=== PATIENT | male | born 1980 | race Hispanic/Latino ===

== ENCOUNTER 2020-05-15 05:33 | Emergency (ER) | payer SELFPAY ==
[2020-05-15] MEDS ORDERED: LIDOCAINE 1% MPF 5 ML VIAL ONE ×2 (06:04→06:05)
[2020-05-15] MEDS ORDERED: HYDROCODONE/APAP 7.5/325 MG TAB ONE (06:32)
--- NOTE | 2020-05-15 06:33 | EDPHYS ---
Physician Documentation [facility] Name: Tian Mckinley Jr Age: 39 yrs Sex: Male : 1980 Arrival Date: 05/15/2020 Time: 05:36 Bed 13 Private MD: ED Physician Cedric Tai HPI: 05/15 06:12 This 39 yrs old Male presents to ER via Ambulatory with complaints of Abscess. pkl 06:12 mass left axilla. Onset: The symptoms/episode began/occurred 1 week(s) ago. Patient pkl said lump in left axilla getting larger over a week. Historical: - Allergies: 05:49 No Known Allergies; bb - Home Meds: 05:49 None [Active]; bb - PMHx: 05:49 Asthma; bb - PSHx: 05:49 None; bb - Immunization history:: Adult Immunizations up to date. - Social history:: Smoking status: Patient denies any tobacco usage or history of. Patient/guardian denies using alcohol, street drugs. ROS: 06:12 Eyes: Negative for injury, pain, redness, and discharge, ENT: Negative for injury, pkl pain, and discharge, Neck: Negative for injury, pain, and swelling, Cardiovascular: Negative for chest pain, palpitations, and edema, Respiratory: Negative for shortness of breath, cough, wheezing, and pleuritic chest pain, Abdomen/GI: Negative for abdominal pain, nausea, vomiting, diarrhea, and constipation, Back: Negative for injury and pain, : Negative for injury, bleeding, discharge, and swelling, Skin: Negative for injury, rash, and discoloration, Neuro: Negative for headache, weakness, numbness, tingling, and seizure. 06:12 MS/extremity: Positive for Mass in left axilla. Exam: 06:12 Head/Face: Normocephalic, atraumatic. Eyes: Pupils equal round and reactive to light, pkl extra-ocular motions intact. Lids and lashes normal. Conjunctiva and sclera are non-icteric and not injected. Cornea within normal limits. Periorbital areas with no swelling, redness, or edema. ENT: Nares patent. No nasal discharge, no septal abnormalities noted. Tympanic membranes are normal and external auditory canals are clear. Oropharynx with no redness, swelling, or masses, exudates, or evidence of obstruction, uvula midline. Mucous membranes moist. Neck: Trachea midline, no thyromegaly or masses palpated, and no cervical lymphadenopathy. Supple, full range of motion without nuchal rigidity, or vertebral point tenderness. No Meningismus. Chest/axilla: Normal chest wall appearance and motion. Nontender with no deformity. No lesions are appreciated. Cardiovascular: Regular rate and rhythm with a normal S1 and S2. No gallops, murmurs, or rubs. Normal PMI, no JVD. No pulse deficits. Respiratory: Lungs have equal breath sounds bilaterally, clear to auscultation and percussion. No rales, rhonchi or wheezes noted. No increased work of breathing, no retractions or nasal flaring. Abdomen/GI: Soft, non-tender, with normal bowel sounds. No distension or tympany. No guarding or rebound. No evidence of tenderness throughout. Back: No spinal tenderness. No costovertebral tenderness. Full range of motion. Skin: Warm, dry with normal turgor. Normal color with no rashes, no lesions, and no evidence of cellulitis. Neuro: Awake and alert, GCS 15, oriented to person, place, time, and situation. Cranial nerves II-XII grossly intact. Motor strength 5/5 in all extremities. Sensory grossly intact. Cerebellar exam normal. Normal gait. 06:12 Musculoskeletal/extremity: Extremities: grossly normal except: noted in the left axilla: 5 cm by 4 cm mass in left axilla. Vital Signs: 05:47 BP 138 / 82; Pulse 98; Resp 18 S; Temp 99.4(O); Pulse Ox 99% on R/A; Weight 127.01 kg bb (R); Height 5 ft. 11 in. (180.34 cm) (R); Pain 8/10; 06:15 BP 127 / 67; Pulse 79; Resp 16; Pulse Ox 100% on R/A; jb4 05:47 Body Mass Index 39.05 (127.01 kg, 180.34 cm) bb Procedures: 06:12 I \T\ D: Incision and drainage was performed for an abscess of the left axilla Prepped pkl with Betadine, Anesthetized with 8 ml's 1% Lidocaine. Incised with #11 blade. Drained small amount bloody fluid. Packed with iodoform gauze, Dressing: sterile 4x4 gauze, the patient tolerated the procedure well. MDM: 05:43 Patient medically screened. pkl 06:12 Data reviewed: vital signs, nurses notes. ED course: Discussed finding at [facility]. No abscess noted. 5 cm by 4 cnn mass. ED course: Discussed finding at I and D with patient. No abscess noted. 5 by 4 cm mass in left axilla noted. Advised to follow up with Dr. Jagdish Batres in 2 to 3 days for further evaluation. Patient understood instruction. 05/15 06:14 Order name: Wound Culture jb4 05/15 06:14 Order name: Dressing - Wound; Complete Time: 06:15 jb4 05/15 06:14 Order name: Gloves, Sterile; Complete Time: 06:15 jb4 05/15 06:14 Order name: I\T\D Setup; Complete Time: 06:15 jb4 05/15 06:14 Order name: Scalpel; Complete Time: 06:15 jb4 Administered Medications: 06:05 Drug: Lidocaine (1 %) 10 mg {Note: Administered by ER provider..} Volume: 20 ml; Route: jb4 Infiltration; 06:20 Drug: [place] (7.5 mg-325 mg) 1 tabs {Note: Rass score 0.} Route: PO; 4 06:41 Follow up: Response: No adverse reaction; Pain is decreased; RASS: Alert and Calm (0) jb4 Disposition: 05/15/20 06:32 Discharged to Home. Impression: Mass left axilla. - Condition is Stable. - Prescriptions for Ultram 50 mg Oral Tablet - take 1 tablet by ORAL route every 8 hours As needed; 15 tablet. Bactrim DS 800- 160 mg Oral Tablet - take 1 tablet by ORAL route every 12 hours for 10 days; 20 tablet. - Medication Reconciliation Form, Thank You Letter, Antibiotic Education, Prescription Opioid Use form. - Follow up: Jagdish Batres MD; When: 2 - 3 days; Reason: Re-evaluation by your physician. - Problem is new. - Symptoms have improved. Signatures: Dispatcher [employer] EDMS Cedric Tai MD MD pkl Casi Nunez RN RN Sage Castaneda RN RN jb4 Corrections: (The following items were deleted from the chart) 06:12 06:11 This 39 yrs old Male presents to ER via Ambulatory with complaints of pkl Abscess. pkl 06:42 06:32 05/15/2020 06:32 Discharged to Home. Impression: Mass left axilla. Condition is jb4 Stable. Forms are Medication Reconciliation Form, Thank You Letter, Antibiotic Education, Prescription Opioid Use. Follow up: Jagdish Batres; When: 2 - 3 days; Reason: Re-evaluation by your physician. Problem is new. Symptoms have improved. pkl
--- NOTE | 2020-05-15 06:33 | ER ---
Nurse's Notes [facility] Name: Tian Mckinley Jr Age: 39 yrs Sex: Male : 1980 Arrival Date: 05/15/2020 Time: 05:36 Bed 13 Private MD: Diagnosis: Mass left axilla Presentation: 05/15 05:47 Chief complaint: Patient states: he has a "ball" under his left armpit x 2 days. bb Coronavirus screen: At this time, the client does not indicate any symptoms associated with coronavirus-19. Ebola Screen: No symptoms or risks identified at this time. Initial Sepsis Screen: Does the patient meet any 2 criteria? No. Patient's initial sepsis screen is negative. Does the patient have a suspected source of infection? No. Patient's initial sepsis screen is negative. Risk Assessment: Do you want to hurt yourself or someone else? Patient reports no desire to harm self or others. Onset of symptoms was May 12, 2020. 05:47 Method Of Arrival: Ambulatory bb 05:47 Acuity: TONI 4 bb Historical: - Allergies: 05:49 No Known Allergies; bb - Home Meds: 05:49 None [Active]; bb - PMHx: 05:49 Asthma; bb - PSHx: 05:49 None; bb - Immunization history:: Adult Immunizations up to date. - Social history:: Smoking status: Patient denies any tobacco usage or history of. Patient/guardian denies using alcohol, street drugs. Screenin:40 Abuse screen: Denies threats or abuse. Nutritional screening: No deficits noted. jb4 Tuberculosis screening: No symptoms or risk factors identified. Fall Risk None identified. Assessment: 05:40 General: Appears in no apparent distress. uncomfortable, Behavior is calm, cooperative, jb4 appropriate for age. Pain: Complains of pain in left axilla Pain does not radiate. Pain currently is 8 out of 10 on a pain scale. Quality of pain is described as throbbing. Neuro: Level of Consciousness is awake, alert, obeys commands, Oriented to person, place, time, situation. Cardiovascular: Patient's skin is warm and dry. Respiratory: Airway is patent Respiratory effort is even, unlabored, Respiratory pattern is regular, symmetrical. GI: No signs and/or symptoms were reported involving the gastrointestinal system. : No signs and/or symptoms were reported regarding the genitourinary system. EENT: No signs and/or symptoms were reported regarding the EENT system. Derm: Skin is intact, Skin is pink, warm \\T\\ dry. Abscess located on left axilla is half dollar sized, has no drainage, is hot to touch, is red, is raised. Musculoskeletal: Circulation, motion, and sensation intact. Range of motion: intact in all extremities. 06:12 Reassessment: Patient appears in no apparent distress at this time. Patient and/or jb4 family updated on plan of care and expected duration. Pain level reassessed. Patient is alert, oriented x 3, equal unlabored respirations, skin warm/dry/pink. Incision cite bandaged with 4x4. Vital Signs: 05:47 BP 138 / 82; Pulse 98; Resp 18 S; Temp 99.4(O); Pulse Ox 99% on R/A; Weight 127.01 kg bb (R); Height 5 ft. 11 in. (180.34 cm) (R); Pain 8/10; 06:15 BP 127 / 67; Pulse 79; Resp 16; Pulse Ox 100% on R/A; jb4 05:47 Body Mass Index 39.05 (127.01 kg, 180.34 cm) bb ED Course: 05:36 Patient arrived in ED. cl3 05:40 Patient has correct armband on for positive identification. Placed in gown. Bed in low jb4 position. Call light in reach. Side rails up X 1. Pulse ox on. NIBP on. 05:43 Cedric Tai MD is Attending Physician. pkl 05:48 Triage completed. bb 05:49 Arm band placed on Patient placed in an exam room, on a stretcher, on pulse oximetry. bb 06:05 Assist provider with I \\T\\ D: of an abscess on left axilla Set up I\\T\\D tray. Performed by mayra 4 Cedric Tai MD Culture sent to lab. Wound packed. iodoform gauze, Dressing with 4X4s, tape Patient tolerated well. 06:11 Sage Ling RN is Primary Nurse. jb4 06:31 Jagdish Batres MD is Referral Physician. pkl 06:41 Patient did not have IV access during this emergency room visit. jb4 Administered Medications: 06:05 Drug: Lidocaine (1 %) 10 mg {Note: Administered by ER provider..} Volume: 20 ml; Route: jb4 Infiltration; 06:20 Drug: [place] (7.5 mg-325 mg) 1 tabs {Note: Rass score 0.} Route: PO; jb4 06:41 Follow up: Response: No adverse reaction; Pain is decreased; RASS: Alert and Calm (0) jb4 Outcome: 06:32 Discharge ordered by . renuka 06:41 Discharged to home ambulatory. jb4 06:41 Condition: stable 06:41 Discharge instructions given to patient, Instructed on discharge instructions, follow up and referral plans. medication usage, Demonstrated understanding of instructions, follow-up care, medications, Prescriptions given X 2. 06:42 Patient left the ED. jb4 Signatures: Cedric Tai MD MD pkCasi Lloyd, RN RN Sage Castaneda RN RN jb4 Adam Mathews cl3 Corrections: (The following items were deleted from the chart) 06:25 05:40 Derm: Skin is intact, Skin is pink, warm \\T\\ dry. jb4 jb4
[2020-05-15 06:47] VITALS: TEMP 99.4
[2020-05-15 06:49] VITALS: BP 127/67; O2SAT 100
== END 2020-05-15 06:42 | disposition home or self-care (01) ==
LOC: ER 05:33
PROC: 0J9F0ZZ Drainage of Left Upper Arm Subcutaneous Tissue and Fascia, Open Approach (ICD-10-PCS; principal; 2020-05-15)
DX: L02.412 Cutaneous abscess of left axilla (principal)
CPT/HCPCS: 87070; 87205; 99284

== ENCOUNTER 2020-05-17 17:40 | Emergency (ER) | payer SELFPAY ==
--- NOTE | 2020-05-17 19:36 | ER ---
Nurse's Notes [facility] Name: Tian Mckinley Jr Age: 39 yrs Sex: Male : 1980 Arrival Date: 05/17/2020 Time: 17:43 Bed 27 Private MD: Diagnosis: Wound Check;Left Axilla Abscess Presentation: 05/17 18:28 Chief complaint: Patient states: was seen here on for abscess to left axilla, iw today his shirt got caught on something and he thinks the packing came out, want to have it checked. Coronavirus screen: At this time, the client does not indicate any symptoms associated with coronavirus-19. Ebola Screen: Patient negative for fever greater than or equal to 101.5 degrees Fahrenheit, and additional compatible Ebola Virus Disease symptoms Patient denies exposure to infectious person. Patient denies travel to an Ebola-affected area in the 21 days before illness onset. No symptoms or risks identified at this time. Initial Sepsis Screen: Does the patient meet any 2 criteria? No. Patient's initial sepsis screen is negative. Does the patient have a suspected source of infection? Yes:. Risk Assessment: Do you want to hurt yourself or someone else? Patient reports no desire to harm self or others. Onset of symptoms was May 17, 2020. 18:28 Method Of Arrival: Ambulatory iw 18:28 Acuity: TONI 4 iw Triage Assessment: 19:30 General: Appears in no apparent distress. Behavior is calm, cooperative. iw Historical: - Allergies: 18:30 No Known Allergies; iw - Home Meds: 18:30 None [Active]; iw - PMHx: 18:30 Asthma; iw - PSHx: 18:30 None; iw - Immunization history:: Adult Immunizations up to date. - Social history:: Smoking status: . Screenin:30 Abuse screen: Denies threats or abuse. Denies injuries from another. Nutritional iw screening: No deficits noted. Tuberculosis screening: No symptoms or risk factors identified. Fall Risk None identified. Assessment: 18:50 General: Appears in no apparent distress. Pain: Complains of pain in left axilla. iw Neuro: Level of Consciousness is awake, alert, obeys commands, Oriented to person, place, time, situation, Moves all extremities. Full function. Cardiovascular: Patient's skin is warm and dry. Respiratory: Respiratory effort is even, unlabored, Respiratory pattern is regular, symmetrical. Derm: Abscess located on left axilla is half dollar sized. Musculoskeletal: Range of motion: intact in all extremities. Vital Signs: 18:29 BP 121 / 64; Pulse 79; Resp 16; Temp 98.3; Pulse Ox 96% on R/A; Weight 113.4 kg; Height iw 5 ft. 11 in. (180.34 cm); 18:29 Body Mass Index 34.87 (113.40 kg, 180.34 cm) iw ED Course: 17:43 Patient arrived in ED. ag5 18:29 Triage completed. iw 18:30 Arm band placed on. iw 18:50 Patient has correct armband on for positive identification. iw 19:00 Ambrosio Martinez MD is Attending Physician. [facility] 19:30 No provider procedures requiring assistance completed. Patient did not have IV access iw during this emergency room visit. 19:34 Gareth Mcnulty MD is Referral Physician. [facility] 19:38 Julieta Daniels RN is Primary Nurse. iw Administered Medications: No medications were administered Outcome: 19:35 Discharge ordered by . [facility] 19:37 Discharged to home ambulatory, with family. iw 19:37 Condition: good 19:37 Discharge instructions given to patient, family, Instructed on discharge instructions, follow up and referral plans. Demonstrated understanding of instructions, follow-up care. 19:38 Patient left the ED. iw Signatures: Julieta Daniels, RN RN Cuba Gooden 5 Ambrosio Martinez MD MD [facility]
--- NOTE | 2020-05-17 19:36 | EDPHYS ---
Physician Documentation [facility] Name: Tian Mckinley Jr Age: 39 yrs Sex: Male : 1980 Arrival Date: 05/17/2020 Time: 17:43 Bed 27 Private MD: ED Physician Ambrosio Martinez HPI: 05/17 19:24 This 39 yrs old Male presents to ER via Ambulatory with complaints of Abscess mh7 Recheck. 19:24 Patient presents to ED for recheck of: abscess. The affected area is on the left mh7 axilla. Previous treatment: The patient was initially treated 2 day(s) ago, the care was rendered at [facility], Treatment type: The patient's original treatment included an I\T\D, Outpatient prescription(s): The patient was given prescription(s) for Bactrim, Ultram. Progress: The patient reports excellent improvement in the affected area. There has been resolution, improvement, or non-development of any drainage, fever, pain, redness or swelling. Historical: - Allergies: 18:30 No Known Allergies; iw - Home Meds: 18:30 None [Active]; iw - PMHx: 18:30 Asthma; iw - PSHx: 18:30 None; iw - Immunization history:: Adult Immunizations up to date. - Social history:: Smoking status: . ROS: 19:24 Constitutional: Negative for fever, chills, and weight loss, Eyes: Negative for injury, mh7 pain, redness, and discharge, ENT: Negative for injury, pain, and discharge, Neck: Negative for injury, pain, and swelling, Cardiovascular: Negative for chest pain, palpitations, and edema, Respiratory: Negative for shortness of breath, cough, wheezing, and pleuritic chest pain, Abdomen/GI: Negative for abdominal pain, nausea, vomiting, diarrhea, and constipation, Back: Negative for injury and pain, : Negative for injury, bleeding, discharge, and swelling, Neuro: Negative for headache, weakness, numbness, tingling, and seizure, Psych: Negative for depression, anxiety, suicide ideation, homicidal ideation, and hallucinations, Allergy/Immunology: Negative for hives, rash, and allergies, Endocrine: Negative for neck swelling, polydipsia, polyuria, polyphagia, and marked weight changes, Hematologic/Lymphatic: Negative for swollen nodes, abnormal bleeding, and unusual bruising. Exam: 19:24 Constitutional: This is a well developed, well nourished patient who is awake, alert, 7 and in no acute distress. Head/Face: Normocephalic, atraumatic. 19:24 MS/ Extremity: Pulses equal, no cyanosis. Neurovascular intact. Full, normal range of motion. Neuro: Awake and alert, GCS 15, oriented to person, place, time, and situation. Cranial nerves II-XII grossly intact. Motor strength 5/5 in all extremities. Sensory grossly intact. Cerebellar exam normal. Normal gait. Psych: Awake, alert, with orientation to person, place and time. Behavior, mood, and affect are within normal limits. 19:24 Chest/axilla: Inspection: Left axilla incision clean, dry, intact, no erythema. Mild swelling and serosanguinous discharge., Palpation: is normal, Axilla: Left axilla incision clean, dry, intact, no erythema. Mild swelling and serosanguinous discharge., Lymph nodes: lymphadenopathy is not appreciated. 19:24 Skin: Wound recheck: Abscess: the wound has improved, decreased discharge, decreased erythema, decreased pain, decreased surrounding cellulitis, decreased swelling, the packing is not in place. Vital Signs: 18:29 BP 121 / 64; Pulse 79; Resp 16; Temp 98.3; Pulse Ox 96% on R/A; Weight 113.4 kg; Height iw 5 ft. 11 in. (180.34 cm); 18:29 Body Mass Index 34.87 (113.40 kg, 180.34 cm) Procedures: 19:24 I \T\ D:. Performed Packing placed to prior left axillary incision after Betadine prep to [facility] skin. 1/2 inch iodoform packing placed. patient tolerated well.. MDM: 19:24 Patient medically screened. [facility] 19:24 Differential diagnosis: cellulitis, Abscess, Wound check. Data reviewed: vital signs, [facility] nurses notes, old medical records. Data interpreted: Pulse oximetry: on room air is 96 %. Interpretation: normal. Counseling: I had a detailed discussion with the patient and/or guardian regarding: the historical points, exam findings, and any diagnostic results supporting the discharge/admit diagnosis, the need for outpatient follow up, a general surgeon, to return to the emergency department if symptoms worsen or persist or if there are any questions or concerns that arise at home. Response to treatment: the patient's symptoms have markedly improved after treatment. Administered Medications: No medications were administered Disposition: 05/17/20 19:35 Discharged to Home. Impression: Wound Check, Left Axilla Abscess. - Condition is Stable. - Discharge Instructions: Wound Check, Skin Abscess, [id number]. - Medication Reconciliation Form, Thank You Letter, Antibiotic Education, Prescription Opioid Use form. - Follow up: Gareth Mcnulty MD; When: 48 Hours; Reason: Wound Recheck, Worsening of condition, Recheck today's complaints. Follow up: Emergency Department; When: 48 Hours; Reason: Wound Recheck, Worsening of condition. - Problem is an ongoing problem. - Symptoms have improved. Signatures: Julieta Daniels, RN RN iw Ambrosio Martinez MD MD mh7 Corrections: (The following items were deleted from the chart) 19:38 19:35 05/17/2020 19:35 Discharged to Home. Impression: Wound Check; Left Axilla iw Abscess. Condition is Stable. Forms are Medication Reconciliation Form, Thank You Letter, Antibiotic Education, Prescription Opioid Use. Follow up: Dr. Gareth Mcnulty; When: 48 Hours; Reason: Wound Recheck, Worsening of condition, Recheck today's complaints. Follow up: Emergency Department; When: 48 Hours; Reason: Wound Recheck, Worsening of condition. Problem is an ongoing problem. Symptoms have improved. mh7
[2020-05-17 19:50] VITALS: BP 121/64; TEMP 98.3; O2SAT 96
== END 2020-05-17 19:38 | disposition home or self-care (01) ==
LOC: ER 17:40
DX: Z48.01 Encounter for change or removal of surgical wound dressing (principal)
CPT/HCPCS: 99281

== ENCOUNTER 2020-05-19 11:34 | Emergency (ER) | payer SELFPAY ==
--- NOTE | 2020-05-19 12:40 | ER ---
Nurse's Notes [facility] Name: Tian Mckinley Jr Age: 39 yrs Sex: Male : 1980 Arrival Date: 05/19/2020 Time: 11:36 Bed 7 Private MD: Diagnosis: Cutaneous abscess of left axilla Presentation: 05/19 11:37 Chief complaint: Patient states: came here on for an I\T\D to under the left arm sv and was packed. Pt is unable to pack it and family is unable to do it as well. States that he is having more drainage from it. Pt also came here on Tuesday because the packing came out with movement. Coronavirus screen: Client denies travel out of the [place] in the last 14 days. At this time, the client does not indicate any symptoms associated with coronavirus-19. Ebola Screen: No symptoms or risks identified at this time. Risk Assessment: Do you want to hurt yourself or someone else? Patient reports no desire to harm self or others. Onset of symptoms was May 15, 2020. 11:37 Method Of Arrival: Ambulatory sv 11:37 Acuity: TONI 4 sv 11:39 Initial Sepsis Screen: Does the patient meet any 2 criteria? HR > 90 bpm. No. Patient's sv initial sepsis screen is negative. Does the patient have a suspected source of infection? No. Patient's initial sepsis screen is negative. Historical: - Allergies: 11:39 No Known Allergies; sv - PMHx: 11:37 Asthma; sv - PSHx: 11:37 None; sv - Immunization history:: Adult Immunizations up to date. - Social history:: Smoking status: . - Family history:: not pertinent. Screenin:00 Abuse screen: Denies threats or abuse. Nutritional screening: No deficits noted. em Tuberculosis screening: No symptoms or risk factors identified. Fall Risk None identified. Assessment: 12:00 General: Appears in no apparent distress. comfortable, Behavior is calm, cooperative, em appropriate for age. Pain: Complains of pain in left axilla. Neuro: Level of Consciousness is awake, alert, obeys commands, Oriented to person, place, time, situation, Appropriate for age. Cardiovascular: Capillary refill < 3 seconds Patient's skin is warm and dry. Respiratory: Airway is patent Respiratory effort is even, unlabored, Respiratory pattern is regular, symmetrical. Derm: Skin is intact, is healthy with good turgor, Skin is pink, warm \T\ dry. Wound noted left axilla Wound is I\T\D few days ago, packing came out early, was told to pack it again, pt unable to repack wound. Musculoskeletal: Capillary refill < 3 seconds, Range of motion: intact in all extremities. Vital Signs: 11:39 BP 142 / 95; Pulse 92; Resp 18; Temp 97.8; Pulse Ox 99% ; sv ED Course: 11:36 Patient arrived in ED. sv 11:37 Arm band placed on. sv 11:39 Triage completed. 12:00 Elder Cabral, RN is Primary Nurse. em 12:00 Patient has correct armband on for positive identification. Bed in low position. Call em light in reach. Adult w/ patient. 12:13 Connor Ferrara MD is Attending Physician. [facility] 12:39 Gareth Mcnulty MD is Referral Physician. [facility] 12:49 No provider procedures requiring assistance completed. Patient did not have IV access em during this emergency room visit. Administered Medications: 12:42 Drug: Doxycycline 200 mg Route: PO; em 12:48 Follow up: Response: Medication administered at discharge. em Outcome: 12:40 Discharge ordered by . [facility] 12:49 Discharged to home ambulatory, with family. em 12:49 Condition: good 12:49 Discharge instructions given to patient, family, Instructed on discharge instructions, follow up and referral plans. medication usage, Demonstrated understanding of instructions, follow-up care, medications, wound care, Prescriptions given X 1. 12:50 Patient left the ED. em Signatures: Britni Lakhani, RN JOANNA Connor Ferrara MD MD cha Munoz, Edgar, RN RN em Corrections: (The following items were deleted from the chart) 11:42 11:39 Resp 18bpm; Pulse Ox 99%; Temp 97.8F; sv sv
--- NOTE | 2020-05-19 12:41 | EDPHYS ---
Physician Documentation [facility] Name: Tian Mckinley Jr Age: 39 yrs Sex: Male : 1980 Arrival Date: 05/19/2020 Time: 11:36 Bed 7 Private MD: ED Physician Connor Ferrara HPI: 05/19 12:35 This 39 yrs old Male presents to ER via Ambulatory with complaints of Abscess azul Recheck. 12:35 Patient presents to ED for recheck of: abscess. The affected area is on the left azul axilla. Previous treatment: the care was rendered at [facility]. Progress: The patient reports excellent improvement in the affected area. There has been resolution, improvement, or non-development of any drainage, fever, pain, redness or swelling. The patient has not experienced similar symptoms in the past. Historical: - Allergies: 11:39 No Known Allergies; sv - PMHx: 11:37 Asthma; sv - PSHx: 11:37 None; sv - Immunization history:: Adult Immunizations up to date. - Social history:: Smoking status: . - Family history:: not pertinent. ROS: 12:35 Constitutional: Negative for fever, chills, and weight loss, Eyes: Negative for injury, azul pain, redness, and discharge, ENT: Negative for injury, pain, and discharge, Neck: Negative for injury, pain, and swelling, Cardiovascular: Negative for chest pain, palpitations, and edema, Respiratory: Negative for shortness of breath, cough, wheezing, and pleuritic chest pain, Abdomen/GI: Negative for abdominal pain, nausea, vomiting, diarrhea, and constipation, Back: Negative for injury and pain, : Negative for injury, bleeding, discharge, and swelling, MS/Extremity: Negative for injury and deformity, Neuro: Negative for headache, weakness, numbness, tingling, and seizure, Psych: Negative for depression, anxiety, suicide ideation, homicidal ideation, and hallucinations, Allergy/Immunology: Negative for hives, rash, and allergies, Endocrine: Negative for neck swelling, polydipsia, polyuria, polyphagia, and marked weight changes, Hematologic/Lymphatic: Negative for swollen nodes, abnormal bleeding, and unusual bruising. 12:35 Skin: Positive for erythema, swelling. Exam: 12:35 Constitutional: This is a well developed, well nourished patient who is awake, alert, azul and in no acute distress. Head/Face: Normocephalic, atraumatic. Eyes: Pupils equal round and reactive to light, extra-ocular motions intact. Lids and lashes normal. Conjunctiva and sclera are non-icteric and not injected. Cornea within normal limits. Periorbital areas with no swelling, redness, or edema. ENT: Nares patent. No nasal discharge, no septal abnormalities noted. Tympanic membranes are normal and external auditory canals are clear. Oropharynx with no redness, swelling, or masses, exudates, or evidence of obstruction, uvula midline. Mucous membranes moist. Neck: Trachea midline, no thyromegaly or masses palpated, and no cervical lymphadenopathy. Supple, full range of motion without nuchal rigidity, or vertebral point tenderness. No Meningismus. Chest/axilla: Normal chest wall appearance and motion. Nontender with no deformity. No lesions are appreciated. Cardiovascular: Regular rate and rhythm with a normal S1 and S2. No gallops, murmurs, or rubs. Normal PMI, no JVD. No pulse deficits. Respiratory: Lungs have equal breath sounds bilaterally, clear to auscultation and percussion. No rales, rhonchi or wheezes noted. No increased work of breathing, no retractions or nasal flaring. Abdomen/GI: Soft, non-tender, with normal bowel sounds. No distension or tympany. No guarding or rebound. No evidence of tenderness throughout. Back: No spinal tenderness. No costovertebral tenderness. Full range of motion. Male : Normal genitalia with no discharge or lesions. MS/ Extremity: Pulses equal, no cyanosis. Neurovascular intact. Full, normal range of motion. Neuro: Awake and alert, GCS 15, oriented to person, place, time, and situation. Cranial nerves II-XII grossly intact. Motor strength 5/5 in all extremities. Sensory grossly intact. Cerebellar exam normal. Normal gait. Psych: Awake, alert, with orientation to person, place and time. Behavior, mood, and affect are within normal limits. 12:35 Skin: Appearance: Color: normal in color, Temperature: normal temperature, Moisture: normal moisture, petechiae, not noted, ecchymosis, not noted, flushing, not noted, abscess, of the left axilla, with drainage, cellulitis, is not appreciated, induration, is not appreciated, injury, is not appreciated, no rash present. Vital Signs: 11:39 BP 142 / 95; Pulse 92; Resp 18; Temp 97.8; Pulse Ox 99% ; sv MDM: 12:13 [facility]. [facility] 12:38 Differential diagnosis: cellulitis. Data reviewed: vital signs, nurses notes. Data azul interpreted: disease intervention specialist: not applicable for this patient encounter. rate is 92 beats/min, rhythm is regular, Pulse oximetry: is not applicable for this patient encounter. Counseling: I had a detailed discussion with the patient and/or guardian regarding: the historical points, exam findings, and any diagnostic results supporting the discharge/admit diagnosis. 11 12:35 Order name: Wound dressing; Complete Time: 12:48 azul Administered Medications: 12:42 Drug: Doxycycline 200 mg Route: PO; em 12:48 Follow up: Response: Medication administered at discharge. em Disposition: 05/19/20 12:40 Discharged to Home. Impression: Cutaneous abscess of left axilla. - Condition is Stable. - Discharge Instructions: Skin Abscess, Incision and Drainage, Skin Abscess, Dzuz-[id number], Incision and Drainage, Care After. - Prescriptions for Doxycycline Hyclate 100 mg Oral Tablet - take 1 tablet by ORAL route every 12 hours; 20 tablet. - Medication Reconciliation Form, Thank You Letter, Antibiotic Education, Prescription Opioid Use form. - Follow up: Private Physician; When: 2 - 3 days; Reason: Recheck today's complaints, Continuance of care, Re-evaluation by your physician. Follow up: Gareth Mcnulty MD; When: 2 - 3 days; Reason: Recheck today's complaints, Continuance of care, Re-evaluation by your physician. - Problem is new. - Symptoms have improved. Signatures: Britni Lakhani, JOANNA RN Connor Chowdhury MD MD cha Munoz, Edgar RN RN em Corrections: (The following items were deleted from the chart) 12:50 12:40 05/19/2020 12:40 Discharged to Home. Impression: Cutaneous abscess of left em axilla. Condition is Stable. Forms are Medication Reconciliation Form, Thank You Letter, Antibiotic Education, Prescription Opioid Use. Follow up: Private Physician; When: 2 - 3 days; Reason: Recheck today's complaints, Continuance of care, Re-evaluation by your physician. Follow up: Dr. Gareth Mcnulty; When: 2 - 3 days; Reason: Recheck today's complaints, Continuance of care, Re-evaluation by your physician. Problem is new. Symptoms have improved. azul
[2020-05-19] MEDS ORDERED: DOXYCYCLINE 100 MG CAP PO ONE (12:51)
[2020-05-19 12:55] VITALS: BP 142/95; TEMP 97.8; O2SAT 99
== END 2020-05-19 12:50 | disposition home or self-care (01) ==
LOC: ER 11:34
DX: Z48.01 Encounter for change or removal of surgical wound dressing (principal)
CPT/HCPCS: 99283